=== PATIENT | female | born 1950 | race Caucasian/White ===

== ENCOUNTER 2020-09-21 07:52 | Emergency (ER) | payer MEDICARE, BC ==
[~2020-09-21] VITALS: Ht 162.6 cm; Wt 62.3 kg
[2020-09-21 08:08] VITALS: Ht 162.6 cm; Wt 62.3 kg
[2020-09-21 09:21] VITALS: BP 146/67
== END 2020-09-21 09:21 | disposition home or self-care (01) ==
LOC: D.ER 07:52
DX: K59.00 Constipation, unspecified (principal); R33.9 Retention of urine, unspecified; I10 Essential (primary) hypertension; Z72.0 Tobacco use